=== PATIENT | male | born 1975 | race Caucasian/White ===

== ENCOUNTER → 2017-06-11 | Outpatient (CLI) | payer OTHER ==
[~2017-06-11] MED LIST: ATIVAN0.5 MG PO; ATIVAN1 MG PO; CETIRIZINE HCL10 MG PO; CITRATE OF MAG300 ML PO; EFFEXOR XR150 MG PO; LAMICTAL200 MG PO; LIPITOR10 MG PO; MIRALAX POWDER17 G1 PO; Nizoral 2%15 GM PO; PREDNISONE10 MG PO; RISPERDAL4 MG PO; SEROQUEL XR300 MG PO; SEROQUEL50 MG PO; SYNTHROID0.15 MG PO
== END ==
LOC: RAD 10:25
DX: R05 Cough (principal); J44.9 Chronic obstructive pulmonary disease, unspecified; J18.9 Pneumonia, unspecified organism

== ENCOUNTER 2022-02-14 12:10 | Emergency (ER) | payer MEDICARE, MEDICAID ==
[~2022-02-14] VITALS: Wt 80.7 kg
[2022-02-14 17:39] VITALS: BP 128/78
[2022-02-14] MEDS ORDERED: AUGMENTIN 875-875 MG PO (18:22)
== END 2022-02-14 18:31 | disposition home or self-care (01) ==
LOC: ED 12:10
DX: S02.2XXA Fracture of nasal bones, initial encounter for closed fracture (principal); Z79.899 Other long term (current) drug therapy; W18.39XA Other fall on same level, initial encounter; Y93.89 Activity, other specified; Y92.89 Other specified places as the place of occurrence of the external cause; Y99.8 Other external cause status

== ENCOUNTER → 2022-04-22 | Outpatient (CLI) | payer MEDICARE, MEDICAID ==
[~2022-04-22] MED LIST changes: +AUGMENTIN 875-875 MG PO
== END ==
LOC: LAB 11:26
PROVIDERS: ATTEND Nurse Practitioner
DX: Z51.81 Encounter for therapeutic drug level monitoring (principal); F20.0 Paranoid schizophrenia

== ENCOUNTER 2022-08-30 15:34 | Emergency (ER) | payer MEDICARE, MEDICAID ==
[~2022-08-30] VITALS: Ht 185.4 cm; Wt 75.7 kg
[2022-08-30] MEDS ORDERED: HYDROCODONE-AC1 EAC1 PO (18:48)
[2022-08-30 19:31] VITALS: BP 95/65
== END 2022-08-30 19:33 | disposition home or self-care (01) ==
LOC: ED 15:34
DX: S53.125A Posterior dislocation of left ulnohumeral joint, initial encounter (principal); Z98.890 Other specified postprocedural states; Z79.899 Other long term (current) drug therapy; W18.39XA Other fall on same level, initial encounter; Y93.89 Activity, other specified; Y92.89 Other specified places as the place of occurrence of the external cause; Y99.8 Other external cause status

== ENCOUNTER 2022-08-31 20:28 | Emergency (ER) | payer MEDICARE, MEDICAID ==
[~2022-08-31 20:28] MED LIST changes: +HYDROCODONE-AC1 EAC1 PO
[2022-08-31 20:30] VITALS: BP 131/74
== END 2022-08-31 20:59 | disposition home or self-care (01) ==
LOC: ED 20:28
DX: S53.105D Unspecified dislocation of left ulnohumeral joint, subsequent encounter (principal); W19.XXXD Unspecified fall, subsequent encounter; Z98.890 Other specified postprocedural states